=== PATIENT | female | born 1955 | race Caucasian/White ===

== ENCOUNTER 2017-07-12 07:53 | Outpatient (CLI) | payer OTHER ==
[~2017-07-12 07:53] MED LIST: CIPRO500 MG PO; CLONAZEPAM0.5 MG; DICLOFENAC POTA50 MG; FLEXERIL10 MG PO; LEXAPRO5 MG; NABUMETONE750 MG PO; NORFLEX100MG PO; PEPCID40 MG PO; SYNTHROID88 MCG
== END 2017-07-12 11:55 | disposition home or self-care (01) ==
LOC: LAB 07:53
DX: M83.9 Adult osteomalacia, unspecified (principal); E03.9 Hypothyroidism, unspecified; E78.2 Mixed hyperlipidemia; E73.9 Lactose intolerance, unspecified

== ENCOUNTER 2017-08-02 09:43 | Outpatient (CLI) | payer OTHER | END 2017-08-02 09:45 | disposition home or self-care (01) | LOC: MAMO-SONO 09:43 | DX: Z12.31 Encounter for screening mammogram for malignant neoplasm of breast (principal); N60.11 Diffuse cystic mastopathy of right breast; N60.12 Diffuse cystic mastopathy of left breast ==

== ENCOUNTER 2017-10-24 11:04 | Outpatient (CLI) | payer OTHER | END 2017-10-24 11:14 | disposition home or self-care (01) | LOC: LAB 11:04 | DX: E78.4 Other hyperlipidemia (principal) ==

== ENCOUNTER 2018-02-16 05:53 | Day surgery (SDC) | payer OTHER | END 2018-02-16 13:05 | disposition home or self-care (01) | LOC: AMB-ENDOS 05:53 | DX: K57.30 Diverticulosis of large intestine without perforation or abscess without bleeding (principal); Z12.11 Encounter for screening for malignant neoplasm of colon ==

== ENCOUNTER 2018-05-29 08:07 | Outpatient (CLI) | payer OTHER | END 2018-05-29 16:40 | disposition home or self-care (01) | LOC: LAB 08:07 | DX: E03.8 Other specified hypothyroidism (principal); E73.8 Other lactose intolerance; E78.2 Mixed hyperlipidemia; I10 Essential (primary) hypertension ==

== ENCOUNTER 2018-06-05 07:47 | Outpatient (CLI) | payer OTHER | END 2018-06-05 08:05 | disposition home or self-care (01) | LOC: LAB 07:47 | DX: E03.8 Other specified hypothyroidism (principal); R41.89 Other symptoms and signs involving cognitive functions and awareness; R41.3 Other amnesia; F03.90 Unspecified dementia, unspecified severity, without behavioral disturbance, psychotic disturbance, mood disturbance, and anxiety ==

== ENCOUNTER 2018-06-12 11:28 | Outpatient (CLI) | payer OTHER | END 2018-06-12 11:36 | disposition home or self-care (01) | LOC: LAB 11:28 | DX: K75.89 Other specified inflammatory liver diseases (principal) ==

== ENCOUNTER → 2018-07-25 08:32 | Outpatient (CLI) | payer OTHER | END | disposition home or self-care (01) | LOC: LAB 08:32 → MRI 10:15 | DX: N20.0 Calculus of kidney (principal) ==

== ENCOUNTER 2018-07-25 11:22 | Outpatient (CLI) | payer OTHER | END 2018-07-25 15:01 | disposition home or self-care (01) | LOC: MRI 11:22 | DX: R41.3 Other amnesia (principal) | CPT/HCPCS: 70553 ==

== ENCOUNTER 2018-09-04 09:16 | Outpatient (CLI) | payer OTHER | END 2018-09-04 09:25 | disposition home or self-care (01) | LOC: MAMO-SONO 09:16 | DX: Z12.31 Encounter for screening mammogram for malignant neoplasm of breast (principal); Z87.898 Personal history of other specified conditions; N60.19 Diffuse cystic mastopathy of unspecified breast ==

== ENCOUNTER 2018-09-08 12:35 | Outpatient (CLI) | payer OTHER | END 2018-09-08 12:37 | disposition home or self-care (01) | LOC: NUCLEAR 12:35 | DX: N95.1 Menopausal and female climacteric states (principal); M81.0 Age-related osteoporosis without current pathological fracture ==

== ENCOUNTER 2018-12-11 07:55 | Outpatient (CLI) | payer OTHER | END 2018-12-11 08:16 | disposition home or self-care (01) | LOC: LAB 07:55 | DX: E03.8 Other specified hypothyroidism (principal); I10 Essential (primary) hypertension; E78.2 Mixed hyperlipidemia ==

== ENCOUNTER → 2019-06-18 08:31 | Outpatient (CLI) | payer OTHER | END | disposition home or self-care (01) | LOC: LAB 08:31 | DX: I10 Essential (primary) hypertension (principal); E03.8 Other specified hypothyroidism; E78.2 Mixed hyperlipidemia; M83.8 Other adult osteomalacia ==

== ENCOUNTER 2019-06-20 07:42 | Outpatient (CLI) | payer OTHER | END 2019-06-20 07:43 | disposition home or self-care (01) | LOC: SONOGRAMA 07:42 → MAMO-SONO 07:45 | DX: E04.1 Nontoxic single thyroid nodule (principal) ==

== ENCOUNTER 2019-07-27 08:56 | Outpatient (CLI) | payer OTHER | END 2019-07-27 09:00 | disposition home or self-care (01) | LOC: SONOGRAMA 08:56 → MAMO-SONO 09:15 | PROVIDERS: ATTEND Internal Medicine | DX: R74.8 Abnormal levels of other serum enzymes (principal) ==

== ENCOUNTER 2019-08-01 16:30 | Outpatient (CLI) | payer OTHER | END 2019-08-01 16:38 | disposition home or self-care (01) | LOC: RAD 16:30 | PROVIDERS: ATTEND Internal Medicine | DX: M79.671 Pain in right foot (principal) ==

== ENCOUNTER 2019-09-03 09:43 | Outpatient (CLI) | payer OTHER | END 2019-09-03 10:05 | disposition home or self-care (01) | LOC: RAD 09:43 | PROVIDERS: ATTEND Physical Medicine & Rehabilitation | DX: M54.2 Cervicalgia (principal) ==

== ENCOUNTER 2019-10-02 13:55 | Outpatient (CLI) | payer OTHER | END 2019-10-02 14:20 | disposition home or self-care (01) | LOC: OFIC 805 13:55 | PROVIDERS: ATTEND Otolaryngology | DX: H93.A2 Pulsatile tinnitus, left ear (principal); H91.8X2 Other specified hearing loss, left ear ==

== ENCOUNTER 2019-11-14 10:35 | Outpatient (CLI) | payer OTHER | END 2019-11-14 10:38 | disposition home or self-care (01) | LOC: MAMO-SONO 10:35 | PROVIDERS: ATTEND Obstetrics & Gynecology | DX: Z12.31 Encounter for screening mammogram for malignant neoplasm of breast (principal); N60.19 Diffuse cystic mastopathy of unspecified breast ==

== ENCOUNTER 2019-11-15 15:56 | Outpatient (CLI) | payer OTHER | END 2019-11-15 16:20 | disposition home or self-care (01) | LOC: OFIC 805 15:56 | PROVIDERS: ATTEND Otolaryngology | DX: H91.8X2 Other specified hearing loss, left ear (principal); H93.A2 Pulsatile tinnitus, left ear ==

== ENCOUNTER 2020-01-24 08:10 | Emergency (ER) | payer OTHER ==
[~2020-01-24] VITALS: Ht 157.5 cm; Wt 66.2 kg
[2020-01-24] MEDS ORDERED: SYNTHROID75 MCG PO (14:41)
[2020-01-24] MEDS ORDERED: LYRICA50 MG PO (14:41)
== END 2020-01-24 09:48 | disposition home or self-care (01) ==
LOC: ER 08:10
DX: S52.121A Displaced fracture of head of right radius, initial encounter for closed fracture (principal); W18.39XA Other fall on same level, initial encounter; Y93.89 Activity, other specified; Y92.89 Other specified places as the place of occurrence of the external cause; Y99.8 Other external cause status

== ENCOUNTER 2020-02-04 05:55 | Day surgery (SDC) | payer OTHER ==
[~2020-02-04 05:55] MED LIST changes: +LYRICA50 MG PO; +SYNTHROID75 MCG PO
== END 2020-02-04 14:30 | disposition home or self-care (01) ==
LOC: CIR.AMB 05:55
PROVIDERS: ATTEND Orthopaedic Surgery
DX: S52.131A Displaced fracture of neck of right radius, initial encounter for closed fracture (principal); Z20.828 Contact with and (suspected) exposure to other viral communicable diseases

== ENCOUNTER 2020-03-05 15:00 | Outpatient (CLI) | payer OTHER | END 2020-03-05 15:09 | disposition home or self-care (01) | LOC: RAD 15:00 | PROVIDERS: ATTEND Orthopaedic Surgery | DX: M77.01 Medial epicondylitis, right elbow (principal); S52.131D Displaced fracture of neck of right radius, subsequent encounter for closed fracture with routine healing ==

== ENCOUNTER 2020-04-03 13:08 | Outpatient (CLI) | payer OTHER | END 2020-04-03 13:19 | disposition home or self-care (01) | LOC: RAD 13:08 | PROVIDERS: ATTEND Orthopaedic Surgery | DX: S52.131D Displaced fracture of neck of right radius, subsequent encounter for closed fracture with routine healing (principal) ==

== ENCOUNTER 2020-12-20 19:53 | Emergency (ER) | payer OTHER ==
[~2020-12-20] VITALS: Ht 160 cm; Wt 54.4 kg
[2020-12-20] MEDS ORDERED: IBU400 MG PO (21:40)
== END 2020-12-20 22:18 | disposition home or self-care (01) ==
LOC: ER 19:53
DX: N39.0 Urinary tract infection, site not specified (principal); E03.9 Hypothyroidism, unspecified

== ENCOUNTER 2021-01-02 07:33 | Outpatient (CLI) | payer OTHER ==
[~2021-01-02 07:33] MED LIST changes: +IBU400 MG PO
== END 2021-01-02 07:42 | disposition home or self-care (01) ==
LOC: LAB 07:33
PROVIDERS: ATTEND Obstetrics & Gynecology
DX: N30.00 Acute cystitis without hematuria (principal)

== ENCOUNTER 2021-03-11 12:40 | Outpatient (CLI) | payer OTHER | END 2021-03-11 12:52 | disposition home or self-care (01) | LOC: MAMO-SONO 12:40 | PROVIDERS: ATTEND Obstetrics & Gynecology | DX: Z12.31 Encounter for screening mammogram for malignant neoplasm of breast (principal); N60.19 Diffuse cystic mastopathy of unspecified breast ==

== ENCOUNTER 2021-06-25 09:52 | Outpatient (CLI) | payer OTHER | END 2021-06-25 10:02 | disposition home or self-care (01) | LOC: RAD 09:52 | DX: M99.01 Segmental and somatic dysfunction of cervical region (principal); M99.02 Segmental and somatic dysfunction of thoracic region; M99.03 Segmental and somatic dysfunction of lumbar region; M99.04 Segmental and somatic dysfunction of sacral region ==

== ENCOUNTER 2021-08-28 09:14 | Outpatient (CLI) | payer OTHER | END 2021-08-28 09:26 | disposition home or self-care (01) | LOC: SONOGRAMA 09:14 | PROVIDERS: ATTEND Internal Medicine | DX: R87.9 Unspecified abnormal finding in specimens from female genital organs (principal); E04.2 Nontoxic multinodular goiter ==

== ENCOUNTER 2022-01-13 09:46 | Outpatient (CLI) | payer OTHER | END 2022-01-13 10:05 | disposition home or self-care (01) | LOC: MRI 09:46 | PROVIDERS: ATTEND Obstetrics & Gynecology Obstetrics | DX: E08.49 Diabetes mellitus due to underlying condition with other diabetic neurological complication (principal) | CPT/HCPCS: 72148 ==

== ENCOUNTER 2022-02-23 07:05 | Outpatient (CLI) | payer OTHER | END 2022-02-23 07:09 | disposition home or self-care (01) | LOC: NUCLEAR 07:05 | PROVIDERS: ATTEND Internal Medicine | DX: I25.10 Atherosclerotic heart disease of native coronary artery without angina pectoris (principal) | CPT/HCPCS: 78452; 93017; A9500 ==

== ENCOUNTER → 2022-03-15 | Outpatient (CLI) | payer OTHER | END | disposition home or self-care (01) | LOC: MAMO-SONO 11:11 | PROVIDERS: ATTEND Obstetrics & Gynecology | DX: Z12.31 Encounter for screening mammogram for malignant neoplasm of breast (principal); N60.19 Diffuse cystic mastopathy of unspecified breast ==

== ENCOUNTER 2022-09-15 10:51 | Outpatient (CLI) | payer OTHER | END 2022-09-15 10:57 | disposition home or self-care (01) | LOC: SONOGRAMA 10:51 | PROVIDERS: ATTEND Internal Medicine | DX: E04.2 Nontoxic multinodular goiter (principal) ==

== ENCOUNTER 2022-10-10 12:18 | Emergency (ER) | payer OTHER ==
[~2022-10-10] VITALS: Ht 157.5 cm; Wt 68.0 kg
== END 2022-10-10 15:35 | disposition home or self-care (01) ==
LOC: ER 12:18
DX: U07.1 COVID-19 (principal)

== ENCOUNTER 2022-12-21 15:41 | Outpatient (CLI) | payer OTHER ==
[2022-12-21 16:49] LABS: CALCIUM 9.8 mg/dL (8.5-10.1); CREATININE SERUM 0.8 mg/dL (0.55-1.02); GFR 71.76; POTASSIUM 3.92 mEq/L (3.5-5.1)
== END 2022-12-21 15:48 | disposition home or self-care (01) ==
LOC: LAB 15:41
PROVIDERS: ATTEND Psychiatry & Neurology Clinical Neurophysiology
DX: D33.3 Benign neoplasm of cranial nerves (principal)

== ENCOUNTER 2022-12-22 08:21 | Outpatient (CLI) | payer OTHER | END 2022-12-22 08:29 | disposition home or self-care (01) | LOC: MRI 08:21 | PROVIDERS: ATTEND Psychiatry & Neurology Clinical Neurophysiology | DX: D33.3 Benign neoplasm of cranial nerves (principal) | CPT/HCPCS: 70552; Q9965 ==

== ENCOUNTER → 2023-02-18 06:14 | Outpatient (CLI) | payer OTHER ==
[2023-02-18 07:16] LABS: HEMATOCRIT 41.6 % (36.0-45.00); MEAN CORPUSCULAR HEMOGLOBIN 30.2 pg (27.00-32.0); MEAN CORPUSCULAR HGB CONC 33.5 g/dl (32.0-36.0); PLATELET COUNT 274 K/uL (150-450); RED BLOOD COUNT 4.62 M/uL (4.00-6.00); RED CELL DISTRIBUTION WIDTH 14.3 % (11.5-14.5)
[2023-02-18 07:55] LABS: BILIRUBIN TOTAL 0.51 mg/dL (0.3-1.2); CALCIUM 9.6 mg/dL (8.5-10.1); CHOL HDL RATIO 2.6 (0-5.0); CREATININE SERUM 0.76 mg/dL (0.55-1.02); GFR 76.14; GLOBULINA 3.1 G/DL (2.4-3.5); POTASSIUM 4.37 mEq/L (3.5-5.1); T4 FREE 1.09 NG/ML (0.76-1.46); TOTAL PROTEIN 7.1 gm/dL (6.4-8.2); TSH 2.59 uIU/mL (0.358-3.74)
== END | disposition home or self-care (01) ==
LOC: LAB 06:14
PROVIDERS: ATTEND Internal Medicine
DX: E78.5 Hyperlipidemia, unspecified (principal); E03.8 Other specified hypothyroidism; I10 Essential (primary) hypertension

== ENCOUNTER 2024-05-08 13:34 | Outpatient (CLI) | payer OTHER | END 2024-05-08 13:37 | disposition home or self-care (01) | LOC: SONOGRAMA 13:34 | DX: R31.29 Other microscopic hematuria (principal); N32.81 Overactive bladder ==

== ENCOUNTER 2024-07-03 12:41 | Outpatient (CLI) | payer OTHER | END 2024-07-03 12:47 | disposition home or self-care (01) | LOC: MAMO-SONO 12:41 | PROVIDERS: ATTEND Obstetrics & Gynecology | DX: N60.19 Diffuse cystic mastopathy of unspecified breast (principal); Z12.31 Encounter for screening mammogram for malignant neoplasm of breast ==

== ENCOUNTER 2024-09-10 09:18 | Outpatient (CLI) | payer OTHER | END 2024-09-10 09:23 | disposition home or self-care (01) | LOC: SONOGRAMA 09:18 | PROVIDERS: ATTEND Internal Medicine | DX: E04.2 Nontoxic multinodular goiter (principal) ==

== ENCOUNTER 2024-10-11 07:10 | Outpatient (CLI) | payer OTHER ==
[2024-10-11 08:09] LABS: BASO % 0.3 % (0.1-1.2); EOS # 0.12 (0.04-0.54); EOS % 1.6 % (0.7-7.0); LYMPH # 4.16 (1.18-3.74); LYMPH % 53.8 % (19.3-53.1); MEAN PLATELET VOLUME 9.00 fl (9.4-12.4); MONO # 0.37 (0.24-0.82); MONO % 4.8 % (4.7-12.5); NEUT # 3.04 (1.56-6.13); NEUT % 39.2 % (34.0-71.1); RED CELL DISTRIBUTION WIDTH 14.3 % (11.6-14.4)
[2024-10-11 09:37] LABS: ALT/SGPT 50.0 U/L (12-78); AST/SGOT 23.0 U/L (15-37); BILIRUBIN TOTAL 0.68 mg/dL (0.3-1.2); BUN CREA RATIO 27.0 (7.0-25.0); CREATININE SERUM 0.82 mg/dL (0.55-1.02); GFR 69.32; GLOBULINA 3.0 G/DL (2.4-3.5); GLUCOSE FASTING 105.0 mg/dL (65-100); LDH 175.0 U/L (84-246); OSMOLALITY SERUM 287.0 MOSM/KG (275-295)
[2024-10-12 07:11] LABS: hav igm Negative (Negative); hep b c Negative (Negative); hep b s ag Negative (Negative)
[2024-10-12 13:08] LABS: a:g ratio 1.7 (0.7-1.7); alpha 1 g 0.2 g/dL (0.0-0.4); beta g 1.0 g/dL (0.7-1.3); gamma g 0.6 g/dL (0.4-1.8); globulin t 2.5 g/dL (2.2-3.9); prot total 6.7 g/dL (6.0-8.5)
== END 2024-10-11 07:17 | disposition home or self-care (01) ==
LOC: LAB 07:10
DX: D72.820 Lymphocytosis (symptomatic) (principal); E03.9 Hypothyroidism, unspecified; Z87.891 Personal history of nicotine dependence; B00.9 Herpesviral infection, unspecified

== ENCOUNTER 2024-10-12 09:37 | Outpatient (CLI) | payer OTHER | END 2024-10-12 09:45 | disposition home or self-care (01) | LOC: TOM 09:37 | PROVIDERS: ATTEND Internal Medicine Hematology & Oncology | DX: D72.820 Lymphocytosis (symptomatic) (principal); R32 Unspecified urinary incontinence | CPT/HCPCS: 71270; 74178; Q9965 ==

== ENCOUNTER 2025-02-04 07:33 | Outpatient (CLI) | payer OTHER | END 2025-02-04 07:34 | disposition home or self-care (01) | LOC: NUCLEAR 07:33 | PROVIDERS: ATTEND Internal Medicine Hematology & Oncology | DX: C91.10 Chronic lymphocytic leukemia of B-cell type not having achieved remission (principal) | CPT/HCPCS: 78815; A9552 ==